=== PATIENT | male | born 1940 | race Two or more races ===

== ENCOUNTER 2018-05-06 16:33 | Emergency (ER) | payer OTHER ==
[~2018-05-06] VITALS: Ht 170.2 cm; Wt 113.2 kg
[2018-05-06 16:40] VITALS: Ht 170.2 cm; Wt 113.2 kg
[2018-05-06 19:33] VITALS: BP 136/64
== END 2018-05-06 19:33 | disposition home or self-care (01) ==
LOC: ED 16:33
DX: Z48.01 Encounter for change or removal of surgical wound dressing (principal); I10 Essential (primary) hypertension; E11.8 Type 2 diabetes mellitus with unspecified complications; E78.00 Pure hypercholesterolemia, unspecified; Z88.1 Allergy status to other antibiotic agents